=== PATIENT | male | born 1995 | race Caucasian/White ===

== ENCOUNTER 2019-07-17 04:28 | Emergency (ER) | payer OTHER ==
[~2019-07-17] VITALS: Ht 180.3 cm; Wt 79.4 kg
[2019-07-17] MEDS ORDERED: BUTALB-APAP-CA1 EACH PO (05:06)
[2019-07-17 05:22] VITALS: BP 121/85
== END 2019-07-17 05:22 | disposition home or self-care (01) ==
LOC: M.ERS 04:28
DX: G43.909 Migraine, unspecified, not intractable, without status migrainosus (principal); E11.9 Type 2 diabetes mellitus without complications; F17.210 Nicotine dependence, cigarettes, uncomplicated